=== PATIENT | female | born 1935 | race Caucasian/White ===

== ENCOUNTER 2022-10-09 13:45 | Observation (INO) ==
[2022-10-09 09:35] VITALS: BMI 30.2
[2022-10-09 09:41] LABS: ALANINE AMINOTRANSFERASE 25 Units/L (12-78); ALBUMIN 3.7 g/dL (3.4-5.0); ALKALINE PHOSPHATASE 121 Units/L (46-116); ASPARTATE AMINO TRANSFERASE 25 Units/L (15-37); BLOOD UREA NITROGEN 20 mg/dL (7-18); CALCIUM 9.1 mg/dL (8.5-10.1); CARBON DIOXIDE 30.4 mmol/L (21-32); CHLORIDE 98 mmol/L (98-107); CREATININE 1.02 mg/dL (0.55-1.02); SODIUM 136 mmol/L (136-145); TOTAL PROTEIN 7.5 g/dL (6.4-8.2); eGFR NON BLACK RACES 55 (>60)
[~2022-10-09 13:45] MED LIST: ANCEF VIAL 1 GRAM ONE; BARHEMSYS INJ IVP PRN; BARHEMSYS INJ ONE; BENADRYL INJ 50 MG VIAL IVP PRN; BRIDION ONE; DECADRON INJ ONE; DILAUDID INJ ONE; EPHEDRINE SULFATE INJ ONE; FENTANYL VIAL INJ 100 mcg ONE; KETAMINE 50 MG/5 ML-NACL SYRNG ONE; LACRI-LUBE S.O.P. ONE; LR 1,000 ML IV 1,000 ML IV ONE; MARCAINE 0.5% ONE; NAROPIN 0.75% EPI ONE; NS 100 ML IV 100 ML ONE; OFIRMEV IV 1000 MG VIAL 1,000 MG/100 ML VIAL IV ONE; PEPCID 20 MG VIAL ONE; PRECEDEX INJ VIAL IVP ONE; QUELICIN (OR ANECTINE) ONE; ROBINUL ONE; TYLENOL 325 MG TAB PO PRN; ULTANE GAS IN ONE; VERSED ONE; XYLOCAINE 2 % (PLAIN) ONE; ZEMURON 100 MG VIAL ONE
[2022-10-09] MEDS: DILAUDID INJ IVP PRN ×3 (13:45→13:56)
[2022-10-09] MEDS ORDERED: K-RIDER 10 MEQ/NS 100 ML 10 MEQ/100 ML BAG IV PRN (15:25)
[2022-10-09] MEDS ORDERED: KLOR-CON PO PRN (15:25)
[2022-10-09] MEDS ORDERED: K-DUR TAB 20 MEQ PO PRN (15:25)
[2022-10-09] MEDS ORDERED: MAGNESIUM SULFATE 1 GRAM/100 mL PREMIX 1 G/100 ML BAG IV PRN (15:25)
[2022-10-09] MEDS ORDERED: POTASSIUM CHLORIDE LIQ 20 MEQ UDC PO PRN (15:25)
[2022-10-09] MEDS ORDERED: POTASSIUM CHL 40 MEQ/NS 0.45% 500 ML IV PRN (15:25)
[2022-10-09] MEDS ORDERED: POTASSIUM CHL 60 MEQ/NS 0.45% 500 ML IV PRN (15:25)
[2022-10-09] MEDS ORDERED: MICRO K EXTEN CAP 10 MEQ PO PRN (15:25)
[2022-10-09] MEDS: PERCOCET TAB 5/325 MG PO PRN ×2 (18:53→23:23)
[2022-10-09] MEDS ORDERED: COLACE CAP 100 MG PO SCH (21:00)
[2022-10-10 01:54] LABS: BILIRUBIN,URINE NEGATIVE (NEGATIVE); BLOOD/HEMOGLOBIN,URINE 2+ (NEGATIVE); GLUCOSE, URINE 1+ (NEGATIVE); KETONES,URINE NEGATIVE (NEGATIVE); LEUKOCYTE ESTERASE ,URINE NEGATIVE (NEGATIVE); NITRITES,URINE NEGATIVE (NEGATIVE); PROTEIN,URINE NEGATIVE (NEGATIVE); UROBILINOGEN,URINE NORMAL (NORMAL)
[2022-10-10 02:00] LABS: APPEARANCE,URINE CLEAR (CLEAR); COLOR,URINE YELLOW (YELLOW)
[2022-10-10 02:01] LABS: BACTERIA,URINE NEGATIVE /HPF (NEGATIVE); HYALINE CASTS, URINE RARE /LPF (NEGATIVE); SQUAMOUS EPITHELIAL CELL,UR RARE /HPF (NEGATIVE)
[2022-10-10] MEDS: PERCOCET TAB 5/325 MG PO PRN (03:46)
[2022-10-10 06:17] LABS: BLOOD UREA NITROGEN 17 mg/dL (7-18); CALCIUM 8.5 mg/dL (8.5-10.1); CARBON DIOXIDE 29.7 mmol/L (21-32); CHLORIDE 97 mmol/L (98-107); COR NA(FOR HYPERGLY) 134 mmol/L (136-145); SODIUM 133 mmol/L (136-145); eGFR NON BLACK RACES 56 (>60)
[2022-10-10] MEDS ORDERED: PERCOCET TAB 5/325 MG PO PRN (08:53)
[2022-10-10] MEDS ORDERED: LOVENOX INJ 40 MG SYR SC SCH (09:00)
[2022-10-10] MEDS ORDERED: ASPIRIN EC 81 MG PO SCH (09:00)
[2022-10-10] MEDS ORDERED: MICRO K EXTEN CAP 10 MEQ PO SCH (09:00)
[2022-10-10] MEDS ORDERED: SYNTHROID 75 mcg TAB PO SCH (09:00)
[2022-10-10] MEDS ORDERED: CHLORTHALIDONE PO SCH (09:00)
--- NOTE | 2022-10-10 10:07 | NOTE.SOAP ---
Soap Note Note for Day of Date of Exam: 10/10/22 Subjective Data Subjective Data: This is a 86 yo female who was admitted for observation and post operative pain control yesterday following a right total ankle replacement surgery by Dr. Abraham (DOS 10-09-22). Patient is resting comfortably in bed with her right leg elevated on 2 pillows upon entering the room. Chau's daughter is bedside. Patient states she had difficulty sleeping throught the night last night due to pain. She states she saw Dr. Westbrook this morning who was going to adjust her medications this morning to allow for further pain control. Patient states other than the burning pain she is feeling around the surgical site she is doing well. Patient and patient's daughter state she feels ready to be discharged home. Objective Data Objective Data: Lower extremity focused exam: (R) Posterior splint is in place, clean dry and intact. No strikethrough. No evidence of weight bearing. No moisture and no foul odor at this time. Able to wiggle digits. Neurovascular status appears unchanged from surgery yesterday. CFT is ~2seconds to digits. Light touch and protective sensation intact throughout R LE. No signs of compartment syndrome or DVT. Assessment Assessment: - S/p Right total ankle replacement, prophylactic fixation of medial malleolus, and ankle hardware removal (DOS 10-09-22) Plan Plan: - Patient evaluated and chart reviewed. - Okay for discharge from foot and ankle POV. - Pain not controlled enough to allow for sleep last night. Medication regimen to be modified this morning before patient leaves to ensure she is discharge with appropriate pain control level. - Post op instructions, clinic follow up appt card, DME for leg elevation pillow, and prescriptions (Percocet 5, Phenergran 12.5, and Lovenox 40) in chart. To be given upon DC. - Will follow while patient remains in house
--- NOTE | 2022-10-10 10:17 | NOTE.SOAP ---
Soap Note Note for Day of Date of Exam: 10/10/22 Subjective Data Subjective Data: 86 yo female admitted yesterday for post op pain control follow right total ankle replacement by Dr. Abraham. Patient resting comfortably in bed with leg elevated and daughter bedside. States she had burning pain in the middle of the night and did not sleep well. She states she saw Dr. Westbrook this morning and had plans for adjusting post op pain regimen. Other than burning pain, she states she feels ready to go home this morning. No other complaints. No f,c,n,v,sob, or cp at time of interview. Objective Data Objective Data: Right LE focused: Posterior splint CDI, no strikethrough, no evidence of WB, no malodor. Able to wiggle digits. Light touch and protective sensation intact. NV unchanged from preoperative levels - CFT mainted to digits. No evidence of compartment syndrome or DVT. No clinical evidence of infection. Moderate pain on palpation of right ankle. Assessment Assessment: - S/p right total ankle replacement, medial malleolar fixation prophylactic, and hardware removal (DOS 10-09-22) Plan Plan: - Patient evaluated and chart reviewed. - Okay for DC this morning from a foot and ankle POV. Did discuss this with the nursing team. - Pain regimen adjusted by Dr. Westbrook this morning. Post op pain regimen suggestions/edits appreciated. - Post op instructions, appt card, DME Rx, and medications in chart. To be given at time of DC. Instructed patient to start Lovenox this evening. - Will follow while in house.
[2022-10-10 12:34] VITALS: BP 133/64
== END 2022-10-10 12:20 | disposition home or self-care (01) ==
LOC: MED/SURG → EDSTATUS 13:45
PROVIDERS: ADMIT Obstetrics & Gynecology Obstetrics; ATTEND Obstetrics & Gynecology Obstetrics
DX: X58.XXXA Exposure to other specified factors, initial encounter; M21.071 Valgus deformity, not elsewhere classified, right ankle; M19.071 Primary osteoarthritis, right ankle and foot; R26.89 Other abnormalities of gait and mobility; T84.498A Other mechanical complication of other internal orthopedic devices, implants and grafts, initial encounter